=== PATIENT | male | born 1975 | race American Indian/Alaskan Native ===

== ENCOUNTER 2019-08-27 22:00 | Emergency (ER) | payer MEDICARE ==
--- NOTE | 2019-08-27 22:33 | Emergency Department Report ---
ED Seizure HPI - General Chief Complaint: Seizure Stated Complaint: SEIZURES Time Seen by Provider: 08/27/19 22:31 Source: EMS Mode of arrival: Ambulatory Limitations: Altered Mental Status, Other (pt is MR) - History of Present Illness Initial Comments: Patient is a 43-year-old male that presents emergency room for seizure activity. Patient has a long history of seizures. Patient is currently on Vimpat and Keppra. Patient is compliant with medications. Histories are per the patient's guardian since the patient has difficulty communicating due to developmental delay. Per mother patient is at baseline. Patient had a seizure today at dinner and then another one in the car on the way home from dinner and that is when the mother called ambulance to bring the patient to the ER. Complaint: seizure -: Sudden Description of Episode: loss of consciousness, tonic-clonic movement Witnessed:: Yes Trauma: No Seizure History: known seizure disorder, compliant with medication Place: street/outdoors Possible Precipitating Event: none Treatments Prior to Arrival: none - Related Data Home Medications Medication Instructions Recorded Confirmed Last Taken Lacosamide [Vimpat] 150 mg PO BID 08/06/19 08/06/19 08/05/19 levETIRAcetam [Keppra TAB] 2,000 mg PO BID 08/06/19 08/06/19 08/05/19 Allergies Allergy/AdvReac Type Severity Reaction Status Date / Time No Known Allergies Allergy Verified 08/06/19 10:45 ED Review of Systems ROS: Stated complaint: SEIZURES Other details as noted in HPI Comment: Unobtainable due to pts medical conditions ED Past Medical Hx - Past Medical History Previous Medical History?: Yes Hx Seizures: Yes Additional medical history: Mild Autism, developmentally delayed - Surgical History Past Surgical History?: No - Family History Family history: no significant - Social History Smoking Status: Never Smoker Substance Use Type: None - Medications Home Medications: Home Medications Medication Instructions Recorded Confirmed Last Taken Type Lacosamide [Vimpat] 150 mg PO BID 08/06/19 08/06/19 08/05/19 History levETIRAcetam [Keppra TAB] 2,000 mg PO BID 08/06/19 08/06/19 08/05/19 History ED Physical Exam - General Limitations: Altered Mental Status, Other General appearance: alert, in no apparent distress - Head Head exam: Present: atraumatic, normocephalic - Eye Eye exam: Present: normal appearance, PERRL Pupils: Present: normal accommodation - ENT ENT exam: Present: mucous membranes moist - Neck Neck exam: Present: normal inspection - Respiratory Respiratory exam: Present: normal lung sounds bilaterally. Absent: respiratory distress, wheezes, rales - Cardiovascular Cardiovascular Exam: Present: regular rate, normal rhythm. Absent: systolic murmur, diastolic murmur, rubs, gallop - GI/Abdominal GI/Abdominal exam: Present: soft, normal bowel sounds - Rectal Rectal exam: Present: deferred - Extremities Exam Extremities exam: Present: normal inspection - Back Exam Back exam: Present: normal inspection - Neurological Exam Neurological exam: Present: alert, altered - Skin Skin exam: Present: warm, dry, intact, normal color. Absent: rash ED Course Vital Signs 08/27/19 23:53 Temperature 98.0 F Pulse Rate 78 Respiratory 18 Rate Blood Pressure 114/72 [Right] O2 Sat by Pulse 100 Oximetry - Reevaluation(s) Reevaluation #1: I discussed all results and clinical findings with father. I discussed plan of care with father. Father agrees with plan of care. Patient is stable for discharge. Patient will be discharged home. Father given discharge instructions. Father voiced understanding of discharge instructions. Patient h as not had any seizure activity in the ER at all. Patient has been seizure-free since arrival. Patient already has a neurologist. 08/28/19 00:37 ED Medical Decision Making - Lab Data Result diagrams: 08/27/19 22:48 08/27/19 22:48 - Medical Decision Making Patient is a 43-year-old male that presents emergency room for seizure activity. Patient was given Keppra IV in the ER. Patient did not have any further seizure activity in the ER. Patient stable for discharge. Patient discharged home. Patient's labs are unremarkable. Patient guardians given the discharge instructions. - Differential Diagnosis sz. Critical care attestation.: If time is entered above; I have spent that time in minutes in the direct care of this critically ill patient, excluding procedure time. ED Disposition Clinical Impression: Seizure, Autism Disposition: [id number] TO HOME OR SELFCARE Is pt being admited?: No Does the pt Need Aspirin: No Condition: Stable Instructions: Recurrent Seizures Adult (ED), Epilepsy (ED) Additional Instructions: Patient to follow-up with primary care in 2 to 3 days. Patient to follow-up with neurologist in 2 days. Patient to return to ER if condition worsens, changes or new symptoms arise. Patient to continue all medications. Patient to increase water. Patient to rest. Patient to avoid strenuous exercise. Time of Disposition: 00:55
[2019-08-27 23:05] LABS: Basophils % (Auto) 0.8 % (0.0-1.8); Eosinophils # (Auto) 0.1 K/mm3 (0.0-0.4); Eosinophils % (Auto) 1.7 % (0.0-4.3); Hematocrit 42.5 % (35.5-45.6); Lymphocytes # (Auto) 1.3 K/mm3 (1.2-5.4); Lymphocytes % (Auto) 24.8 % (13.4-35.0); Mean Corpuscular HGB Conc 33 % (32-34); Mean Corpuscular Volume 91 fl (84-94); Monocytes # (Auto) 0.5 K/mm3 (0.0-0.8); Monocytes % (Auto) 9.5 % (0.0-7.3); Platelet Count 295 K/mm3 (140-440); Red Blood Count 4.67 M/mm3 (3.65-5.03); Red Cell Distribution Width 13.9 % (13.2-15.2)
[2019-08-27 23:24] LABS: Alanine Aminotransferase 12 units/L (7-56); Albumin 4.4 g/dL (3.9-5); BUN/Creatinine Ratio 11; Blood Urea Nitrogen 11 mg/dL (9-20); Calcium 9.6 mg/dL (8.4-10.2); Hemolysis Index 8
[2019-08-27] MEDS: levETIRAcetam 1000 MG/NS 0.75% 1,000 MG/100 ML BAG IV ONE (23:30)
[2019-08-27 23:54] VITALS: BP 114/72
== END 2019-08-28 01:07 | disposition home or self-care (01) ==
LOC: ED 22:00
DX: G40.909 Epilepsy, unspecified, not intractable, without status epilepticus (principal); F84.0 Autistic disorder; Z79.899 Other long term (current) drug therapy
CPT/HCPCS: 36415; 80053; 85025; 96374; 99284; J1953